=== PATIENT | female | born 1945 | race Caucasian/White ===

== ENCOUNTER 2018-07-31 04:35 | Outpatient (CLI) | payer OTHER, MEDICARE ==
[~2018-07-31 04:35] MED LIST: ASPI-1265 PO; GLIM4TAB79 PO; LISI10TA4 PO; SITA1TAB10 PO
== END 2018-07-31 23:59 | disposition home or self-care (01) ==
LOC: DIABETIC 04:35
PROVIDERS: ATTEND Family Medicine
DX: E11.9 Type 2 diabetes mellitus without complications (principal); I10 Essential (primary) hypertension; Z79.82 Long term (current) use of aspirin
CPT/HCPCS: G0108

== ENCOUNTER 2018-11-23 00:41 | Outpatient (CLI) | payer OTHER, MEDICARE | END 2018-11-23 23:59 | disposition home or self-care (01) | LOC: DIABETIC 00:41 | PROVIDERS: ATTEND Family Medicine | DX: E11.65 Type 2 diabetes mellitus with hyperglycemia (principal); I10 Essential (primary) hypertension; Z79.899 Other long term (current) drug therapy | CPT/HCPCS: G0108 ==

== ENCOUNTER 2019-02-26 00:30 | Outpatient (CLI) | payer OTHER, MEDICARE ==
[~2019-02-26 00:30] MED LIST changes: +GLIM4TAB4 PO; -GLIM4TAB79 PO
== END 2019-02-26 23:59 | disposition home or self-care (01) ==
LOC: DIABETIC 00:30
PROVIDERS: ATTEND Family Medicine
DX: E11.9 Type 2 diabetes mellitus without complications (principal); I10 Essential (primary) hypertension; Z79.899 Other long term (current) drug therapy
CPT/HCPCS: G0108

== ENCOUNTER 2019-08-10 00:01 | Outpatient (CLI) | payer MEDICARE, OTHER ==
[~2019-08-10 00:01] MED LIST changes: -GLIM4TAB4 PO; +GLIM4TAB7 PO
== END 2019-08-10 23:59 | disposition home or self-care (01) ==
LOC: DIABETIC 00:01
PROVIDERS: ATTEND Family Medicine
DX: E11.9 Type 2 diabetes mellitus without complications (principal)
CPT/HCPCS: G0108